=== PATIENT | male | born 2000 | race Caucasian/White ===

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

== ENCOUNTER 2018-06-04 15:06 | Emergency (ER) | payer BC ==
[2018-06-04] MEDS ORDERED: ONDANSETRON 4 MG/2 ML VIAL IVP ONE (15:27)
[2018-06-04] MEDS ORDERED: NS 1,000 ML IV ONE ×2 (15:27→16:17)
--- NOTE | 2018-06-04 15:48 | EDPHY ---
General - History Smoking Status: Former smoker <Hesham Mallory - Last Filed: 06/04/18 16:18> <SumanJewell kelley - Last Filed: 06/04/18 19:30> Time Seen by Provider: 06/04/18 15:40 Narrative: CHIEF COMPLAINT: Nausea, vomiting, diarrhea HISTORY OF PRESENT ILLNESS: Patient presents private vehicle with complaints of vomiting diarrhea. Symptoms started abruptly this morning. He has had too numerous to count vomiting and diarrhea. He has some abdominal cramping with this. He has no fever. No chills. No chest pain or shortness of breath. No cough. No headache or neck pain. No recent travel or known sick contacts. He has no bloody emesis or stools. He has history of sickle vomiting, but he thinks this is different. No other associated complaints or modifying factors REVIEW OF SYSTEMS: 10 systems were reviewed and negative with the exception of the elements mentioned in the history of present illness. PCP: Dr. Luz Beckett SPECIALISTS: None currently PAST MEDICAL HISTORY: The Lyme disease, Salazar's palsy, cyclical vomiting PAST SURGICAL HISTORY: No surgical history SOCIAL HISTORY: Nonsmoker. Lives independently. FAMILY HISTORY: Noncontributory EXAMINATION: Vitals: Triage VS reviewed General Appearance: Alert, no distress. Nontoxic Head: normocephalic, atraumatic Eyes: Pupils equal and round, no conjunctival pallor or injection ENT, Mouth: Mucous membranes slightly dry. Airway patent. Neck: Normal inspection, supple, non-tender Respiratory: Lungs are clear to auscultation Cardiovascular: Regular rate and rhythm Gastrointestinal: Abdomen is soft and nondistended. Bowel sounds present all 4 quadrants. No tympany rigidity. No guarding. No CVA tenderness. Back: non-tender, no bony abnormalities Neurological: A&O, nonfocal, normal gait Skin: Warm and dry, no rash Extremities: Nontender, no pedal edema Psychiatric: Mood and affect normal DIFFERENTIAL DIAGNOSES: Including but not limited to nausea vomiting, diarrhea prior gastroenteritis, gastritis, enteritis, mesenteric adenitis MDM: 3:40 p.m. Acute nausea vomiting diarrhea with benign abdominal examination. He does appear to be nauseated but actively vomiting in the room. He has received Zofran prior to my examination. I have ordered further nausea medication, Protonix and IV fluid. Laboratory studies pending no need for imaging at this time 4:15 p.m. Patient re-evaluated. Laboratory studies consistent with vomiting but no acute , worsened findings. The patient has reportedly been attempting to make himself vomit per nursing staff. I have ordered additional fluid. Haldol and Benadryl recently given. At this time I have also discussed case with caryn june. She will assume care the patient at this time. Please see her note for final disposition further care SUPERVISION: This patient was independently evaluated without direct involvement of or examination by the attending physician. CONSULTATION: (Hesham Mallory) - Objective Vital Signs: Initial Vital Signs Temperature (C) 36.7 C 06/04/18 15:10 Heart Rate 70 06/04/18 15:10 Respiratory Rate 18 06/04/18 15:10 Blood Pressure 103/87 H 06/04/18 15:10 O2 Sat (%) 100 06/04/18 15:10 O2 Delivery Mode Room Air Allergies/Adverse Reactions: No Known Allergies Allergy (Verified 06/04/18 15:08) Home Medications: Medication Instructions Recorded Famotidine [Pepcid 20 MG (*)] 20 mg PO BID #30 tab 06/04/18 Ondansetron Odt [Zofran Odt 4 mg 4 mg PO Q6 PRN #12 tab 06/04/18 (*)] Promethazine HCl [Phenergan 25mg 25 mg PO Q8 PRN #12 tab 06/04/18 (*)] Prozac 10 MG (*) 06/04/18 Sucralfate [Carafate Oral Liquid 10 ml PO QID PRN #240 ml 06/04/18 100 mg/ml] traZODone 06/04/18 Laboratory Results: Laboratory Results 06/04/18 15:38 06/04/18 15:38 06/04/18 06/04/18 15:38 15:38 WBC 24.45 10^3/uL H 10^3/uL (3.80-9.50) RBC 5.91 10^6/uL 10^6/uL (4.40-6.38) Hgb 17.5 g/dL g/dL (13.7-17.5) Hct 49.6 % % (40.0-51.0) MCV 83.9 fL fL (81.5-99.8) MCH 29.6 pg pg (27.9-34.1) MCHC 35.3 g/dL g/dL (32.4-36.7) RDW 12.7 % % (11.5-15.2) Plt Count 417 10^3/uL H 10^3/uL (150-400) MPV 8.6 fL L fL (8.7-11.7) Neut % (Auto) 86.5 % H % (39.3-74.2) Lymph % (Auto) 6.7 % L % (15.0-45.0) [place] % (Auto) 5.4 % % (4.5-13.0) Eos % (Auto) 0.2 % L % (0.6-7.6) Baso % (Auto) 0.4 % % (0.3-1.7) Nucleat RBC Rel Count 0.0 % % (0.0-0.2) Absolute Neuts (auto) 21.15 10^3/uL H 10^3/uL (1.70-6.50) Absolute Lymphs (auto) 1.64 10^3/uL 10^3/uL (1.00-3.00) Absolute Monos (auto) 1.32 10^3/uL H 10^3/uL (0.30-0.80) Absolute Eos (auto) 0.05 10^3/uL 10^3/uL (0.03-0.40) Absolute Basos (auto) 0.10 10^3/uL 10^3/uL (0.02-0.10) Absolute Nucleated RBC 0.00 10^3/uL 10^3/uL (0-0.01) Immature Gran % 0.8 % % (0.0-1.1) Immature Gran # 0.20 10^3/uL H 10^3/uL (0.00-0.10) RBC/WBC/PLT Morphology TNP Platelet Estimate TNP Sodium 140 mEq/L mEq/L (135-145) Potassium 4.9 mEq/L mEq/L (3.5-5.2) Chloride 104 mEq/L mEq/L (97-110) Carbon Dioxide 20 mEq/l L mEq/l (22-31) Anion Gap 16 mEq/L H mEq/L (6-14) BUN 17 mg/dL mg/dL (7-23) Creatinine 1.1 mg/dL mg/dL (0.7-1.3) Estimated GFR > 60 Glucose 153 mg/dL H mg/dL (70-100) Calcium 10.9 mg/dL H mg/dL (8.5-10.4) Phosphorus 1.4 mg/dL L mg/dL (2.5-4.5) Total Bilirubin 0.6 mg/dL mg/dL (0.1-1.4) Conjugated Bilirubin 0.1 mg/dL mg/dL (0.0-0.5) Unconjugated Bilirubin 0.5 mg/dL mg/dL (0.0-1.1) AST 24 IU/L IU/L (17-59) ALT 26 IU/L IU/L (21-72) Alkaline Phosphatase 74 IU/L IU/L (38-126) Total Protein 8.9 g/dL H g/dL (6.3-8.2) Albumin 5.4 g/dL H g/dL (3.5-5.0) Lipase 185 IU/L IU/L (23-300) Medications Given: Discontinued Medications Diphenhydramine HCl (Benadryl Injection) 50 mg IVP EDNOW ONE Stop: 06/04/18 15:50 Last Admin: 06/04/18 16:03 Dose: 50 mg Haloperidol Lactate (Haldol Injection) 2.5 mg IVP EDNOW ONE Stop: 06/04/18 15:50 Last Admin: 06/04/18 16:01 Dose: 2.5 mg Haloperidol Lactate (Haldol Injection) 2.5 mg IVP EDNOW ONE Stop: 06/04/18 17:00 Last Admin: 06/04/18 17:06 Dose: 2.5 mg Sodium Chloride (Ns) 1,000 mls @ 0 mls/hr IV ONCE ONE; Wide Open PRN Reason: Protocol Stop: 06/04/18 15:28 Last Admin: 06/04/18 15:38 Dose: 1,000 mls Sodium Chloride (Ns) 1,000 mls @ 0 mls/hr IV EDNOW ONE; Wide Open PRN Reason: Protocol Stop: 06/04/18 16:18 Last Admin: 06/04/18 16:31 Dose: 1,000 mls Lorazepam (Ativan Injection) 1 mg IVP EDNOW ONE Stop: 06/04/18 17:00 Last Admin: 06/04/18 17:06 Dose: 1 mg Ondansetron HCl (Zofran) 4 mg IVP EDNOW ONE Stop: 06/04/18 15:28 Last Admin: 06/04/18 15:38 Dose: 4 mg Pantoprazole Sodium (Protonix) 40 mg IVP EDNOW ONE Stop: 06/04/18 15:50 Last Admin: 06/04/18 16:00 Dose: 40 mg ED Course <Hesham Mallory - Last Filed: 06/04/18 16:18> Care Turn Over (time): 16:25 To Dr:: JENNIE Will <Jewell Will - Last Filed: 06/04/18 19:30> Discussion: Care turned over by JENNIE carter at 1625. Patient has a history of cyclical vomiting syndrome presents with nausea and vomiting that is most likely consistent with gastroenteritis. He had a laboratory studies and IV fluids 2 L normal saline and IV antiemetics given including Haldol, Benadryl, Zofran, Protonix. 1627: Labs reviewed with a WBC of 24 K likely reactive, CO2 20, anion gap 16, creatinine 1.1 1700: Reassessed patient. Patient reports 50% improvement in his symptoms. He reports that he feels like he is going to have a panic attack and feels anxious. IV Haldol 2.5 mg and IV Ativan 1 mg given. 1805: Reassessed patient who reports 75% improvement in his symptoms. Patient reports that he has a psychologist that he sees in [place] and has an appointment over [facility] [place]. He is requesting a school note for today and tomorrow. He was given multiple prescriptions to help his nausea and vomiting. Patient's girlfriend drove patient home. This patient was seen under the supervision of my secondary supervising physician. I evaluated care for this patient independently. Discussed this patient with Dr. Castillo who did not see the patient. (Jewell Will) Departure <Hesham Mallory - Last Filed: 06/04/18 16:18> <Jewell Will - Last Filed: 06/04/18 19:30> - Departure Disposition: Home, Routine, Self-Care Clinical Impression: Acute diarrhea Acute gastritis without bleeding Qualifiers: Gastritis type: unspecified gastritis Qualified Code(s): K29.00 - Acute gastritis without bleeding Anxiety disorder Qualifiers: Anxiety disorder type: generalized anxiety disorder Qualified Code(s): F41.1 - Generalized anxiety disorder Condition: Good Instructions: Gastritis (ED), Cyclic Vomiting Syndrome (ED) Additional Instructions: Consume a minimum of 8-10 glasses of water or electrolyte fluid replacement drinks that include Gatorade, Powerade, Pedialyte. Eat a bland diet for the next 48 hours and then slowly advance as tolerated. Take medications as prescribed. Refrain from using marijuana as this can induced nausea and vomiting. Referrals: LUZ BECKETT [Other] - As per Instructions Stand Alone Forms: School Excuse Prescriptions: Famotidine [Pepcid 20 MG (*)] 20 mg PO BID #30 tab Ondansetron Odt [Zofran Odt 4 mg (*)] 4 mg PO Q6 PRN #12 tab PRN Reason: Nausea/Vomiting, Use 1st Promethazine HCl [Phenergan 25mg (*)] 25 mg PO Q8 PRN #12 tab PRN Reason: Nausea/Vomiting, Use 1st Sucralfate [Carafate Oral Liquid 100 mg/ml] 10 ml PO QID PRN #240 ml PRN Reason: abdominal pain
[2018-06-04] MEDS ORDERED: PANTOPRAZOLE SODIUM 40 MG VIAL IVP ONE (15:49)
[2018-06-04] MEDS ORDERED: HALOPERIDOL LACT 5 MG/ML INJ IVP ONE ×2 (15:49→16:59)
[2018-06-04 15:58] LABS: PLATELET COUNT 417 10^3/uL (150-400)
[2018-06-04] MEDS ORDERED: LORazepam 2 MG/ML INJ IVP ONE (16:59)
[2018-06-04 17:58] VITALS: BP 144/83
== END 2018-06-04 18:22 | disposition home or self-care (01) ==
DX: K29.00 Acute gastritis without bleeding (principal); F41.1 Generalized anxiety disorder; E86.9 Volume depletion, unspecified; G43.A0 Cyclical vomiting, in migraine, not intractable; Z87.891 Personal history of nicotine dependence
CPT/HCPCS: 96374; J1200; J1630; J2060; J2405

== ENCOUNTER 2018-06-05 23:04 | Emergency (ER) | payer BC, OTHER ==
[2018-06-05] MEDS ORDERED: IBUPROFEN 600 MG TAB PO ONE (23:32)
--- NOTE | 2018-06-05 23:34 | EDPHY ---
H & P Stated Complaint: Headache, Neck "stuck in position" Time Seen by Provider: 06/05/18 23:16 HPI/ROS: Chief Complaint: Neck spasm HPI: 17-year-old male presenting with pain is spasm right side of his neck going up to his base of his scalp. Patient woke up with this way. No numbness or weakness. Was seen recently for nausea vomiting diarrhea but has since resolved. No headache. No fevers or chills. No skin rash. No pain in his central neck. He has not taken any medications. ROS: 10 systems were reviewed and were negative except those elements noted in the HPI. PMH: Cyclic vomiting syndrome Social History: No smoking, no alcohol, no recreational drug use Family History: non-contributory Physical Exam: Gen: Awake, Alert, No Distress HEENT: Nose: no rhinorrhea Eyes: PERRLA, EOMI Mouth: Moist mucosa Neck: Patient has his neck deviated to the right with palpable spasm in his right trapezius extending to his occiput. No central tenderness. He is able to flex and extend without any difficulty. He is distractible with this. Chest: nontender, lungs clear to auscultation Heart: S1, S2 normal, no murmur Abd: Soft, non-tender, no guarding Back: no CVA tenderness, no midline tenderness Ext: no edema, non-tender Skin: no rash Neuro: CN II-XII intact, Sensation grossly intact, Strength 5/5 in bilateral upper and lower extremities - Personal History Current Tetanus Diphtheria and Acellular Pertussis (TDAP): Yes - Medical/Surgical History Hx Asthma: No Hx Chronic Respiratory Disease: No Hx Diabetes: No Hx Cardiac Disease: No Hx Renal Disease: No Hx Cirrhosis: No Hx Alcoholism: No Hx HIV/AIDS: No Hx Splenectomy or Spleen Trauma: No Other PMH: Lyme disease, [place] Palsy cyclical vomiting - Social History Smoking Status: Former smoker Constitutional: Initial Vital Signs Temperature (C) 36.7 C 06/05/18 23:13 Heart Rate 107 H 06/05/18 23:13 Respiratory Rate 19 06/05/18 23:13 Blood Pressure 158/86 H 06/05/18 23:13 O2 Sat (%) 95 06/05/18 23:13 O2 Delivery Mode Room Air Allergies/Adverse Reactions: No Known Allergies Allergy (Verified 06/05/18 23:13) Home Medications: Medication Instructions Recorded Famotidine [Pepcid 20 MG (*)] 20 mg PO BID #30 tab 06/04/18 Ondansetron Odt [Zofran Odt 4 mg 4 mg PO Q6 PRN #12 tab 06/04/18 (*)] Promethazine HCl [Phenergan 25mg 25 mg PO Q8 PRN #12 tab 06/04/18 (*)] Prozac 10 MG (*) 06/04/18 Sucralfate [Carafate Oral Liquid 10 ml PO QID PRN #240 ml 06/04/18 100 mg/ml] traZODone 06/04/18 Medical Decision Making Procedures: Procedure: Trigger-point injection, Indication: Skin was prepped with chlorhexidine swab. A total of 5 mL of bupivacaine with epinephrine was infiltrated into the right trapezius. The patient experienced relief following the procedure. There are no complications. It was performed by myself. ED Course/Re-evaluation: 17-year-old male presenting with spasmodic torticollis. No red flags for acute neurologic, peripheral nerve or meningitic process. Will give ibuprofen and trigger-point injection and reassess. Patient's next present with resolved however is feeling extremely anxious injury. I have given 1 mg of Ativan. Patient continued pain of being very anxious and restless. Patient was here yesterday and received antiemetics which are possibly a contributing factor to his symptoms. IV is placed and patient was given 50 mg of Benadryl IV. Patient is significantly improved after IV Benadryl. Symptoms resolved almost immediately. He is awake alert and without complaint. Plan will be to discharge with continuing Benadryl orally as needed, follow up with primary care. - Data Points Medications Given: Discontinued Medications Diphenhydramine HCl (Benadryl Injection) 50 mg IVP EDNOW ONE Stop: 06/06/18 01:09 Last Admin: 06/06/18 01:09 Dose: 50 mg Haloperidol (Haldol) 5 mg PO EDNOW ONE Stop: 06/06/18 00:20 Last Admin: 06/06/18 00:38 Dose: 5 mg Ibuprofen (Motrin) 600 mg PO EDNOW ONE Stop: 06/05/18 23:33 Last Admin: 12/11/18 23:51 Dose: 600 mg Lorazepam (Ativan) 1 mg PO EDNOW ONE Stop: 06/05/18 23:52 Last Admin: 06/05/18 23:54 Dose: 1 mg Departure - Departure Disposition: Home, Routine, Self-Care Clinical Impression: Dystonic drug reaction Condition: Good Instructions: Extrapyramidal Symptoms (ED) Additional Instructions: You may continue taking Benadryl, 50 mg every 4-6 hours as needed for neck spasm or restlessness. Follow up with [facility] in 2-3 days for further evaluation. Referrals: YANIRA LUKE ,. [Clinic] - As per Instructions
[2018-06-05] MEDS ORDERED: LORazepam 1 MG TAB ONE (23:46)
[2018-06-05] MEDS ORDERED: LORazepam 1 MG TAB PO ONE (23:51)
[2018-06-06] MEDS ORDERED: HALOPERIDOL 5 MG TAB PO ONE (00:19)
[2018-06-06 02:08] VITALS: BP 120/75
== END 2018-06-06 02:08 | disposition home or self-care (01) ==
PROC: 3E023GC Introduction of Other Therapeutic Substance into Muscle, Percutaneous Approach (ICD-10-PCS; principal; 2018-06-05)
DX: M54.2 Cervicalgia (principal); M62.838 Other muscle spasm; G24.02 Drug induced acute dystonia
CPT/HCPCS: 96374; J1200